=== PATIENT | female | born 1985 ===

== ENCOUNTER → 2016-09-01 | Outpatient (CLI) | payer OTHER | LOC: C.PAPS 17:17 | PROVIDERS: ATTEND Obstetrics & Gynecology | DX: Z12.4 Encounter for screening for malignant neoplasm of cervix (principal) ==

== ENCOUNTER 2021-06-18 00:45 | Inpatient (IN) ==
[2021-06-18] MEDS ORDERED: ACETAMINOPHEN 1,000 MG/100 ML VIAL IV PRN (02:40)
[2021-06-18] MEDS ORDERED: ONDANSETRON 4 MG OD TAB PO PRN (02:41)
[2021-06-18] MEDS ORDERED: LACTATED RINGER'S 1,000 ML IV ONE (02:43)
--- NOTE | 2021-06-18 03:03 | History & Physical Report ---
Date of Service June 18, 2021 Assessment & Plan (1) Labor, prolonged latent phase: Plan: 35-year-old G1, P0 at 39 weeks and 4 days of gestation presenting with irregular but painful contractions since June 16 evening. No cervical change since yesterday morning in the office. Patient is painful and desires pain medication. Vital signs stable afebrile, heart rate reassuring, GBS negative, Discussed options of IV hydration and pain management with IV Tylenol or narcotics and then reevaluate for cervical change. Discussed options of either going home if there is no change or augmentation with oxytocin. Patient agrees with IV hydration and pain management and then decide after for admission or going home. She has a Dula and has her she is consulting with her Dula. They live 10 minutes away from hospital. Patient is allergic to codeine which cause rash after taking liquid codeine for acute pain. I spoke with pharmacist and okay to give Stadol if needed. We will observe, monitor, pain management and reevaluate. All questions were answered. (2) Irregular uterine contractions: History of Present Illness Primary Care Provider: NO PCP Patient is a 35-year-old G1, P0 at 39 weeks and 4 days of gestation she has been having contractions since June 16 evening. They got more closer and regular after 5 AM yesterday morning. They were every 5 to 10 minutes apart and she went to office at 9 AM and her cervix was checked to be 1 cm dilated 80% effaced and -3 station. She was sent home and her contractions spaced out in the afternoon. After 8 PM last night contractions became more regular again every 5 minutes and getting more painful. Her pain level is 8 out of 10 and she desires pain medication. She denies leakage of fluid or vaginal bleeding. She reports good movements. Her has been uncomplicated except hypothyroidism she is on levothyroxine. GBS is negative. Allergies Allergy/AdvReac Type Severity Reaction Status Date / Time codeine Allergy Intermediate rash all Verified 06/18/21 02:45 over body Patient History Social History Smoking Status: Never smoker Second Hand Exposure: No; Do You Dip or Chew Tobacco: No; Hx Alcohol Use: No Hx Substance Use: No Preferred Language: Malawian Communication Ability: Effective Excellence Coach Required: No Beliefs That Will Affect Care: None marital status: Single Current Living Situation: Significant Other Feels Safe at Home: Yes Safety Concerns: Feels Safe At This Time Assistive Devices: None Review of Systems as per Subjective / HPI Physical Exam Constitutional: well developed, well nourished and + acute distress (With contractions only, comfortable in between) Genitourinary: normal external appearance OB Exam Abdomen: + vertex Manual OB Exam: + cervical dilation 1 cm (1-2), + cervical effacement 70% and + station -2 OB Exam Monitor Tracing: + external uterine monitor used and + category I White curdy discharge suggesting Casie patient is very tender to touch in the vagina Results & Data ([facility]) Vital Signs (Past 12 Hours) Vital Signs Temp Pulse Resp BP 06/18/21 01:04 84 132/80 06/18/21 00:58 37.2 C 16
[2021-06-18] MEDS ORDERED: BUTORPHANOL TARTRATE 1 MG/ML VIAL IV ONE (03:09)
[2021-06-18 03:18] LABS: Basophils # (auto) 0.02 K/uL (0-0.2); Basophils % (auto) 0.2 %; Eosinophils # (auto) 0.05 K/uL (0-0.5); Eosinophils % (auto) 0.6 %; Hematocrit (blood only) 36.5 % (37-47); Hemoglobin 12.6 g/dL (12.0-16.0); Immature Granulocytes # (auto) 0.02 K/uL (0.00-0.02); Immature Granulocytes % (auto) 0.2 %; Lymphocytes # (auto) 2.13 K/uL (1.2-3.4); Lymphocytes % (auto) 23.5 %; Mean Corpuscular Hemoglobin 29.9 pg (25-34); Mean Corpuscular Hgb Conc 34.5 g/dL (32-36); Mean Corpuscular Volume 86.5 fL (80-100); Mean Platelet Volume 9.8 fL (7.4-10.4); Monocytes # (auto) 0.54 K/uL (0.11-0.59); Monocytes % (auto) 5.9 %; Neutrophils # (auto) 6.32 K/uL (1.4-6.5); Neutrophils % (auto) 69.6 %; Platelet Count 187 K/uL (130-400); RDW Coefficient of Variation 13.4 % (11.5-14.5); Red Blood Count 4.22 M/uL (4.2-5.4); White Blood Count 9.08 K/uL (4.8-10.8)
[2021-06-18 03:33] LABS: Albumin Globulin Ratio 1.1 (0.9-2); Albumin Level 3.3 gm/dl (3.4-5.0); Bilirubin,Total 0.3 mg/dl (0.2-1.0); Calcium 8.6 mg/dl (8.5-10.1); Creatinine Clr Calc Pharmacy 154.2 ml/min; Est GFR (African American) 138.8 ml/min; Est GFR (Non-African American) 119.8 ml/min; Globulin 2.9 gm/dl (2.5-4.0); Potassium 3.7 mmol/L (3.5-5.1); Total Protein 6.2 gm/dl (6.0-8.3)
[2021-06-18] MEDS: LACTATED RINGER'S 1,000 ML IV PRN ×4 (04:14→17:59)
[2021-06-18] MEDS ORDERED: OXYTOCIN 30 UNITS/500 ML BAG IV PRN ×3 (10:44→13:00)
--- NOTE | 2021-06-18 10:48 | Obstetrical Progress Note ---
Date of Service June 18, 2021 Assessment & Plan (1) Labor, prolonged latent phase: Plan: Pt in latetnt phase of labor pain is severe ctx 1-3mins VE; ft/post Plan admit Results & Data ([facility]) Vital Signs (Past 12 Hours) Vital Signs Temp Pulse Resp BP 06/18/21 10:07 66 143/84 H 06/18/21 07:53 36.7 C 20 06/18/21 07:47 77 143/73 H 06/18/21 06:20 36.9 C 71 16 134/79 06/18/21 03:22 36.8 C 63 18 128/70 06/18/21 01:04 84 132/80 06/18/21 00:58 37.2 C 16
[2021-06-18] MEDS ORDERED: ePHEDrine sulfate 50 MG/ML AMP ONE (10:49)
[2021-06-18] MEDS ORDERED: SODIUM CHLORIDE 0.9% INJ 10 ML VIAL ONE (10:50)
[2021-06-18] MEDS ORDERED: BUPIVACAINE 0.25% 30 ML VIAL ONE (10:50)
[2021-06-18] MEDS ORDERED: fentaNYL citrate 100 MCG/2 ML VIAL ONE (10:50)
[2021-06-18] MEDS ORDERED: fentaNYL 2MCG/ML ROPIVACAINE 1.25MG/ML 100 ML BAG EPI ONE (10:50)
[2021-06-18] MEDS ORDERED: NALOXONE HCL 1 MG in SODIUM CHLORIDE 0.9% 1000ML 1,000 ML IV PRN ×2 (11:10→21:51)
[2021-06-18] MEDS ORDERED: NALBUPHINE HCL INJ 10 MG/ML AMP IV PRN (11:10)
[2021-06-18] MEDS ORDERED: NALOXONE HCL 0.4 MG/1 ML VIAL/CARP IV PRN ×2 (11:10→21:51)
[2021-06-18] MEDS ORDERED: fentaNYL 2MCG/ML ROPIVACAINE 1.25MG/ML 100 ML BAG EPI PRN (11:10)
[2021-06-18] MEDS ORDERED: diphenhydrAMINE 50 MG/ML VIAL IV PRN ×2 (11:10→21:51)
[2021-06-18] MEDS ORDERED: ONDANSETRON INJ 2 MG/ML 2 ML VIAL IV PRN ×2 (11:10→21:51)
[2021-06-18] MEDS ORDERED: ePHEDrine sulfate 50 MG/ML AMP IV PRN ×2 (11:10→21:51)
--- NOTE | 2021-06-18 11:16 | Anesthesiology Consultation ---
Date of Service June 18, 2021 Assessment & Plan Chart Review Chart Review: Patient NOT seen in Pre Admission Testing Consults Requested none ASA ASA2 Proposed Anesthesia Anesthesia Type: Labor Epidural and CSE Risk / Benefits Reviewed With: PT / POA / Parent / Guardian, Accepts Plan and Informed Consent Obtained History Height/Weight Height: 5 ft 7 in Weight: 90.718 kg Allergies Allergy/AdvReac Type Severity Reaction Status Date / Time codeine Allergy Intermediate rash all Verified 06/18/21 02:45 over body Medications Home Medications Medication Instructions Recorded Confirmed Last Taken levothyroxine 25 mcg tablet 25 mcg PO DAILY 06/18/21 06/18/21 06/17/21 06:00 prenat.vits,simon,[id number] 1 tab PO DAILY 06/18/21 06/18/21 06/17/21 07:00 Active Medications Generic Name Dose Route Start Last Admin Trade Name Freq PRN Reason Stop Dose Admin Acetaminophen 1,000 mg in 100 mls @ 400 mls/hr 06/18/21 02:40 06/18/21 03:20 Ofirmev IV 06/21/21 02:39 Infused Q8H PRN Infusion Pain Lactated Ringer's 1,000 mls @ 250 mls/hr 06/18/21 02:41 06/18/21 10:41 Lr IV 07/18/21 02:40 999 mls/hr .Q4H PRN Infusion L&D Protocol Protocol NPO Date Last Intake of Fluids: 06/18/21 Time Last Intake of Fluids: 11:00 Date Last Intake of Solids: 06/17/21 Time Last Intake of Solids: 22:00 Past Medical History Medical History Hypothyroid Exercise / Class Metabolic Activity II 4-5 Yardwork/Stairs/Walk up hill Past Anesthesia History No Hx of Anesthesia Complications and No Family Hx of Anesthesia Complications History of PONV No Hx of PONV and No Hx of Motion Sickness Social History Smoking Status: Never smoker Do You Dip or Chew Tobacco: No Hx Alcohol Use: No Hx Substance Use: No substance use type: does not use Review of Systems no chest pain or sob Physical Exam Vital Signs Last Vital Signs Temp 36.7 C 06/18/21 07:53 Pulse 66 06/18/21 11:14 Resp 20 06/18/21 07:53 BP 143/84 H 06/18/21 10:07 Pulse Ox 98 06/18/21 11:14 ENMT Mouth: no TMJ abnormality Thyromental Distance: > or= 3.5 Finger Breadths Mallampati Class: II Neck normal visual inspection Respiratory normal respiratory effort Auscultation: lungs clear to auscultation bilaterally Cardiovascular Rate/Rhythm: regular rate and regular rhythm Musculoskeletal Spine: normal cervical ROM Neurologic moves all extremities Psychiatric Orientation: alert and oriented x 3 Testing Laboratory Results 06/18/21 03:03 06/18/21 03:03
--- NOTE | 2021-06-18 12:07 | Obstetrical Progress Note ---
Date of Service June 18, 2021 Assessment & Plan (1) Labor, prolonged latent phase: Plan: Pt doing well FHR; CAT1 Epidural analgesia placed Ctx; mild and irregular VE; 3/50/-3 Admission and Anticipated Discharge Date Admission Date: June 18, 2021 Results & Data ([facility]) Vital Signs (Past 12 Hours) Vital Signs Temp Pulse Resp BP Pulse Ox 06/18/21 12:02 86 93 06/18/21 11:59 75 98 06/18/21 11:54 68 97 06/18/21 11:49 71 98 06/18/21 11:45 85 128/81 06/18/21 11:44 87 99 06/18/21 11:41 77 116/77 06/18/21 11:39 80 98 06/18/21 11:34 75 125/73 98 06/18/21 11:32 73 131/76 06/18/21 11:30 80 132/73 06/18/21 11:29 79 98 06/18/21 11:28 68 134/83 06/18/21 11:26 130/85 06/18/21 11:24 69 98 06/18/21 11:19 75 99 06/18/21 11:17 81 134/81 06/18/21 11:14 66 98 06/18/21 10:07 66 143/84 H 06/18/21 07:53 36.7 C 20 06/18/21 07:47 77 143/73 H 06/18/21 06:20 36.9 C 71 16 134/79 06/18/21 03:22 36.8 C 63 18 128/70 06/18/21 01:04 84 132/80 06/18/21 00:58 37.2 C 16
[2021-06-18] MEDS ORDERED: NURSING L&D Epidural Breakthrough Pain Update ONE (16:12)
--- NOTE | 2021-06-18 20:09 | Obstetrical Progress Note ---
Date of Service June 18, 2021 Assessment & Plan (1) Labor, prolonged latent phase: Plan: Pt fully dilated and pushing Late decels and meconium with pushing Pushing is stopped. IVF and oxygen is given to resuscitate baby Late decels resolved after pushing is stopped Plan will stop pushing for now Admission and Anticipated Discharge Date Admission Date: June 18, 2021 Results & Data ([facility]) Vital Signs (Past 12 Hours) Vital Signs Temp Pulse Resp BP Pulse Ox 06/18/21 19:59 72 100 06/18/21 19:54 67 100 06/18/21 19:51 92 H 93 06/18/21 19:49 95 H 100 06/18/21 19:45 84 90 06/18/21 19:44 104 H 98 06/18/21 19:39 87 99 06/18/21 19:34 89 98 06/18/21 19:30 18 06/18/21 19:29 93 H 99 06/18/21 19:28 80 94 06/18/21 19:24 78 100 06/18/21 19:20 72 142/84 H 06/18/21 19:19 68 100 06/18/21 19:14 85 94 06/18/21 19:11 37.4 C 74 18 94 06/18/21 19:09 92 H 100 06/18/21 19:07 37.4 C 18 06/18/21 19:06 87 139/91 06/18/21 19:04 71 97 06/18/21 18:59 68 100 06/18/21 18:54 73 99 06/18/21 18:52 80 139/70 06/18/21 18:49 82 98 06/18/21 18:44 68 100 06/18/21 18:40 70 132/61 06/18/21 18:39 67 99 06/18/21 18:34 93 H 94 06/18/21 18:29 66 100 06/18/21 18:24 69 100 06/18/21 18:20 71 152/102 H 06/18/21 18:19 79 100 06/18/21 18:14 74 100 06/18/21 18:09 67 100 06/18/21 18:04 63 100 06/18/21 17:59 63 100 06/18/21 17:54 67 99 06/18/21 17:50 73 127/59 L 06/18/21 17:49 76 94 06/18/21 17:47 85 93 06/18/21 17:44 93 H 98 06/18/21 17:42 87 91 06/18/21 17:39 69 99 06/18/21 17:36 69 158/79 H 06/18/21 17:34 69 98 06/18/21 17:29 71 98 06/18/21 17:24 65 95 06/18/21 17:20 66 165/78 H 06/18/21 17:19 68 98 06/18/21 17:14 66 99 06/18/21 17:09 64 97 06/18/21 17:08 70 94 06/18/21 17:05 67 170/78 H 06/18/21 17:04 67 98 06/18/21 17:00 37.1 C 20 06/18/21 16:59 65 96 06/18/21 16:54 73 99 06/18/21 16:53 72 92 06/18/21 16:50 67 160/82 H 06/18/21 16:49 69 97 06/18/21 16:44 66 100 06/18/21 16:39 73 99 06/18/21 16:34 83 89 L 06/18/21 16:32 69 92 06/18/21 16:29 66 97 06/18/21 16:25 69 94 06/18/21 16:24 69 100 06/18/21 16:21 62 140/65 06/18/21 16:19 67 94 06/18/21 16:15 67 94 06/18/21 16:14 68 99 06/18/21 16:09 73 91 06/18/21 16:05 75 138/75 06/18/21 16:04 80 96 06/18/21 16:03 70 90 06/18/21 15:59 69 100 06/18/21 15:54 65 98 06/18/21 15:51 74 93 06/18/21 15:49 67 97 06/18/21 15:44 73 95 06/18/21 15:40 68 94 06/18/21 15:39 68 94 06/18/21 15:35 71 140/83 06/18/21 15:34 68 98 06/18/21 15:30 37.2 C 20 06/18/21 15:29 83 97 06/18/21 15:25 72 90 06/18/21 15:24 72 94 06/18/21 15:22 59 L 139/80 06/18/21 15:19 64 98 06/18/21 15:14 64 96 06/18/21 15:09 69 90 06/18/21 15:08 66 94 06/18/21 15:06 68 163/75 H 06/18/21 15:04 75 97 06/18/21 15:02 74 92 06/18/21 14:59 76 99 06/18/21 14:56 71 93 06/18/21 14:54 61 97 06/18/21 14:50 62 142/72 H 06/18/21 14:49 63 98 06/18/21 14:48 61 94 06/18/21 14:44 68 98 06/18/21 14:39 59 L 97 06/18/21 14:36 60 92 06/18/21 14:35 62 147/75 H 06/18/21 14:34 60 97 06/18/21 14:31 91 H 91 06/18/21 14:29 66 97 06/18/21 14:24 89 89 L 06/18/21 14:21 76 183/79 H 06/18/21 14:19 72 99 06/18/21 14:18 77 92 06/18/21 14:14 76 98 06/18/21 14:11 81 92 06/18/21 14:09 75 98 06/18/21 14:06 85 93 06/18/21 14:04 77 96 06/18/21 13:59 82 93 06/18/21 13:57 79 94 06/18/21 13:54 72 96 06/18/21 13:50 64 131/64 06/18/21 13:49 70 97 06/18/21 13:44 68 96 06/18/21 13:42 68 94 06/18/21 13:39 72 96 06/18/21 13:35 71 131/59 L 06/18/21 13:34 74 97 06/18/21 13:29 78 97 06/18/21 13:24 87 95 06/18/21 13:20 94 H 151/64 H 06/18/21 13:19 76 96 06/18/21 13:14 75 96 06/18/21 13:09 74 96 06/18/21 13:05 76 135/64 06/18/21 13:04 69 97 06/18/21 12:59 72 97 06/18/21 12:54 78 97 06/18/21 12:50 67 147/70 H 06/18/21 12:49 69 97 06/18/21 12:44 73 98 06/18/21 12:39 83 96 06/18/21 12:37 83 91 06/18/21 12:35 78 145/73 H 06/18/21 12:34 88 97 06/18/21 12:29 82 96 06/18/21 12:24 76 98 06/18/21 12:22 86 93 06/18/21 12:20 93 H 130/53 L 06/18/21 12:19 76 100 06/18/21 12:14 89 98 06/18/21 12:13 88 92 06/18/21 12:09 82 97 06/18/21 12:07 98 H 91 06/18/21 12:04 70 98 06/18/21 12:02 86 93 06/18/21 11:59 75 98 06/18/21 11:54 68 97 06/18/21 11:49 71 98 06/18/21 11:45 85 128/81 06/18/21 11:44 87 99 06/18/21 11:41 77 116/77 06/18/21 11:39 80 98 06/18/21 11:34 75 125/73 98 06/18/21 11:32 73 131/76 06/18/21 11:30 80 132/73 06/18/21 11:29 79 98 06/18/21 11:28 68 134/83 06/18/21 11:26 130/85 06/18/21 11:24 69 98 06/18/21 11:19 75 99 06/18/21 11:17 81 134/81 06/18/21 11:14 66 98 06/18/21 10:07 66 143/84 H
--- NOTE | 2021-06-18 20:45 | Obstetrical Progress Note ---
Date of Service June 18, 2021 Assessment & Plan (1) Labor, prolonged latent phase: Plan: Reviewed FHR strip with pt and spouse VE; 10/100/+1 - Uncahnged thick meconium Pitocin is off deep variables and occasional decels are present Recommend c/sec to pt and spouse Pt and spouse wish to be excised so they can discuss recommendation with Director Targeted Marketing Admission and Anticipated Discharge Date Admission Date: June 18, 2021 Results & Data ([facility]) Vital Signs (Past 12 Hours) Vital Signs Temp Pulse Resp BP Pulse Ox 06/18/21 20:39 74 98 06/18/21 20:37 81 91 06/18/21 20:35 75 124/71 06/18/21 20:34 77 100 06/18/21 20:30 83 91 06/18/21 20:29 77 100 06/18/21 20:24 70 100 06/18/21 20:21 75 152/78 H 06/18/21 20:20 79 92 06/18/21 20:19 77 100 06/18/21 20:14 73 98 06/18/21 20:09 72 100 06/18/21 20:06 75 137/73 06/18/21 20:05 18 06/18/21 20:04 70 100 06/18/21 19:59 72 100 06/18/21 19:54 67 100 06/18/21 19:51 92 H 93 06/18/21 19:49 95 H 100 06/18/21 19:45 84 18 90 06/18/21 19:44 104 H 98 06/18/21 19:39 87 99 06/18/21 19:34 89 98 06/18/21 19:30 18 06/18/21 19:29 93 H 99 06/18/21 19:28 80 94 06/18/21 19:24 78 100 06/18/21 19:20 72 142/84 H 06/18/21 19:19 68 100 06/18/21 19:14 85 94 06/18/21 19:11 37.4 C 74 18 94 06/18/21 19:09 92 H 100 06/18/21 19:07 37.4 C 18 06/18/21 19:06 87 139/91 06/18/21 19:04 71 97 06/18/21 18:59 68 100 06/18/21 18:54 73 99 06/18/21 18:52 80 139/70 06/18/21 18:49 82 98 06/18/21 18:44 68 100 06/18/21 18:40 70 132/61 06/18/21 18:39 67 99 06/18/21 18:34 93 H 94 06/18/21 18:29 66 100 06/18/21 18:24 69 100 06/18/21 18:20 71 152/102 H 06/18/21 18:19 79 100 06/18/21 18:14 74 100 06/18/21 18:09 67 100 06/18/21 18:04 63 100 06/18/21 17:59 63 100 06/18/21 17:54 67 99 06/18/21 17:50 73 127/59 L 06/18/21 17:49 76 94 06/18/21 17:47 85 93 06/18/21 17:44 93 H 98 06/18/21 17:42 87 91 06/18/21 17:39 69 99 06/18/21 17:36 69 158/79 H 06/18/21 17:34 69 98 06/18/21 17:29 71 98 06/18/21 17:24 65 95 06/18/21 17:20 66 165/78 H 06/18/21 17:19 68 98 06/18/21 17:14 66 99 06/18/21 17:09 64 97 06/18/21 17:08 70 94 06/18/21 17:05 67 170/78 H 06/18/21 17:04 67 98 06/18/21 17:00 37.1 C 20 06/18/21 16:59 65 96 06/18/21 16:54 73 99 06/18/21 16:53 72 92 06/18/21 16:50 67 160/82 H 06/18/21 16:49 69 97 06/18/21 16:44 66 100 06/18/21 16:39 73 99 06/18/21 16:34 83 89 L 06/18/21 16:32 69 92 06/18/21 16:29 66 97 06/18/21 16:25 69 94 06/18/21 16:24 69 100 06/18/21 16:21 62 140/65 06/18/21 16:19 67 94 06/18/21 16:15 67 94 06/18/21 16:14 68 99 06/18/21 16:09 73 91 06/18/21 16:05 75 138/75 06/18/21 16:04 80 96 06/18/21 16:03 70 90 06/18/21 15:59 69 100 06/18/21 15:54 65 98 06/18/21 15:51 74 93 06/18/21 15:49 67 97 06/18/21 15:44 73 95 06/18/21 15:40 68 94 06/18/21 15:39 68 94 06/18/21 15:35 71 140/83 06/18/21 15:34 68 98 06/18/21 15:30 37.2 C 20 06/18/21 15:29 83 97 06/18/21 15:25 72 90 06/18/21 15:24 72 94 06/18/21 15:22 59 L 139/80 06/18/21 15:19 64 98 06/18/21 15:14 64 96 06/18/21 15:09 69 90 06/18/21 15:08 66 94 06/18/21 15:06 68 163/75 H 06/18/21 15:04 75 97 06/18/21 15:02 74 92 06/18/21 14:59 76 99 06/18/21 14:56 71 93 06/18/21 14:54 61 97 06/18/21 14:50 62 142/72 H 06/18/21 14:49 63 98 06/18/21 14:48 61 94 06/18/21 14:44 68 98 06/18/21 14:39 59 L 97 06/18/21 14:36 60 92 06/18/21 14:35 62 147/75 H 06/18/21 14:34 60 97 06/18/21 14:31 91 H 91 06/18/21 14:29 66 97 06/18/21 14:24 89 89 L 06/18/21 14:21 76 183/79 H 06/18/21 14:19 72 99 06/18/21 14:18 77 92 06/18/21 14:14 76 98 06/18/21 14:11 81 92 06/18/21 14:09 75 98 06/18/21 14:06 85 93 06/18/21 14:04 77 96 06/18/21 13:59 82 93 06/18/21 13:57 79 94 06/18/21 13:54 72 96 06/18/21 13:50 64 131/64 06/18/21 13:49 70 97 06/18/21 13:44 68 96 06/18/21 13:42 68 94 06/18/21 13:39 72 96 06/18/21 13:35 71 131/59 L 06/18/21 13:34 74 97 06/18/21 13:29 78 97 06/18/21 13:24 87 95 06/18/21 13:20 94 H 151/64 H 06/18/21 13:19 76 96 06/18/21 13:14 75 96 06/18/21 13:09 74 96 06/18/21 13:05 76 135/64 06/18/21 13:04 69 97 06/18/21 12:59 72 97 06/18/21 12:54 78 97 06/18/21 12:50 67 147/70 H 06/18/21 12:49 69 97 06/18/21 12:44 73 98 06/18/21 12:39 83 96 06/18/21 12:37 83 91 06/18/21 12:35 78 145/73 H 06/18/21 12:34 88 97 06/18/21 12:29 82 96 06/18/21 12:24 76 98 06/18/21 12:22 86 93 06/18/21 12:20 93 H 130/53 L 06/18/21 12:19 76 100 06/18/21 12:14 89 98 06/18/21 12:13 88 92 06/18/21 12:09 82 97 06/18/21 12:07 98 H 91 06/18/21 12:04 70 98 06/18/21 12:02 86 93 06/18/21 11:59 75 98 06/18/21 11:54 68 97 06/18/21 11:49 71 98 06/18/21 11:45 85 128/81 06/18/21 11:44 87 99 06/18/21 11:41 77 116/77 06/18/21 11:39 80 98 06/18/21 11:34 75 125/73 98 06/18/21 11:32 73 131/76 06/18/21 11:30 80 132/73 06/18/21 11:29 79 98 06/18/21 11:28 68 134/83 06/18/21 11:26 130/85 06/18/21 11:24 69 98 06/18/21 11:19 75 99 06/18/21 11:17 81 134/81 06/18/21 11:14 66 98 06/18/21 10:07 66 143/84 H
[2021-06-18] MEDS ORDERED: ceFAZolin 2000MG 2,000 MG/15 ML SYR IV ONE (21:11)
[2021-06-18] MEDS ORDERED: CITRIC ACID/SODIUM CITRATE 15 ML UDC ONE (21:15)
--- NOTE | 2021-06-18 21:24 | History & Physical Bridge Note ---
Date of Service June 18, 2021 History & Physical Bridge Note I have examined the patient, reviewed the History & Physical and in the interval since the performance of the History & Physical I have noted the following changes of clinical significance: no changes noted
[2021-06-18] MEDS ORDERED: NALOXONE HCL 0.08 MG in SYRINGE 1.8 ML IV PRN (21:51)
[2021-06-18] MEDS ORDERED: MEPERIDINE HCL 25 MG/ML CARP/VIAL IV PRN (21:51)
[2021-06-18] MEDS ORDERED: MoRPHine SULFATE PF 1 MG/ML 10 ML AMP/VIAL EPI ONE (21:51)
[2021-06-18] MEDS ORDERED: LACTATED RINGER'S 500 ML IV PRN (21:51)
[2021-06-18] MEDS ORDERED: MoRPHine SULFATE PF 1 MG/ML 10 ML AMP/VIAL ONE (21:56)
[2021-06-18] MEDS ORDERED: SODIUM CHLORIDE 0.9% 1000ML 1,000 ML IV SCH (22:00)
[2021-06-18] MEDS ORDERED: DC INTRASPINAL MORPHINE SCH (22:00)
[2021-06-18] MEDS ORDERED: LIDOCAINE 2%/EPINEPHRINE 1:200,000 20 ML SDV ONE (22:22)
[2021-06-18] MEDS ORDERED: ONDANSETRON INJ 2 MG/ML 2 ML VIAL ONE (22:22)
[2021-06-18] MEDS ORDERED: METHYLERGONOVINE MALEATE 0.2 MG/ML AMP ONE (22:22)
[2021-06-18] MEDS ORDERED: PHENYLEPHRINE 100MCG/ML 5ML SYR ONE (22:22)
[2021-06-18] MEDS ORDERED: HYDROCORTISONE ACETATE 25 MG SUPP PR PRN (22:58)
[2021-06-18] MEDS ORDERED: MAGNESIUM HYDROXIDE SUSP 30 ML UDC PO PRN (22:58)
[2021-06-18] MEDS ORDERED: BENZOCAINE 20% AER SPR 82.5 GM CAN EXT PRN (22:58)
[2021-06-18] MEDS ORDERED: DIPHTHERIA/TETANUS/PERTUSSIS 0.5 ML SYR/VIAL IM ONE (22:58)
[2021-06-18] MEDS ORDERED: miSOPROStoL 200 MCG TAB PR ONE (22:58)
[2021-06-18] MEDS ORDERED: SENNA 8.6 MG TAB PO PRN (22:58)
[2021-06-18] MEDS ORDERED: METHYLERGONOVINE MALEATE 0.2 MG/ML AMP IM STA (22:58)
[2021-06-18] MEDS ORDERED: LACTATED RINGER'S 1,000 ML IV SCH (23:00)
[2021-06-18 23:44] LABS: Base Excess Cord Arterial Bld -5.3 mEq/L (-9-1.8); CO2 Cord Arterial Blood 45 mmHg (39.1-73.5); HCO3 Cord Arterial Blood 21 mmol/L (19.7-28.5); Oxygen Sat Cord Arterial Blood < 60.0 % (<60); PO2 Cord Arterial Blood 26 mmHg (4.1-31.7); pH Cord Arterial Blood 7.29 (7.1-7.38)
[2021-06-18] MEDS: KETOROLAC 30 MG/ML VIAL IV PRN (23:59)
--- NOTE | 2021-06-19 00:29 | Anesthesia Procedure Note ---
Date of Service June 19, 2021 Anesthesia Post Epidural Note Vital Signs Vital Signs: Temp Pulse Resp BP Pulse Ox 37.4 C 108 H 18 126/54 L 93 06/18/21 23:00 06/19/21 00:26 06/19/21 00:00 06/19/21 00:25 06/19/21 00:26 Pain Intensity Back: Pain Intensity: 6 Notes Mental Status: alert / awake / arousable and participated in evaluation Patient Amnestic to Procedure: No Nausea / Vomiting: adequately controlled Pain: adequately controlled Airway Patency, RR, SpO2: stable & adequate BP & HR: stable & adequate Hydration State: stable & adequate Neuraxial Anesthesia: was administered and sensory block is resolving Anesthetic Complications: no major complications apparent and Pt Satisfied with anesthetic care Epidural: Removed without complications and With tip intact
[2021-06-19] MEDS ORDERED: TERBUTALINE SULFATE 1 MG/ML VIAL SQ ONE (00:46)
[2021-06-19] MEDS ORDERED: OXYTOCIN 20 UNITS in LACTATED RINGER'S 1,000 ML IV SCH (01:00)
[2021-06-19] MEDS: KETOROLAC 30 MG/ML VIAL IV PRN ×2 (06:15→13:15)
[2021-06-19] MEDS: LEVOTHYROXINE SODIUM 25 MCG TABLET PO SCH (06:15)
[2021-06-19 07:05] LABS: Basophils # (auto) 0.01 K/uL (0-0.2); Basophils % (auto) 0.1 %; Eosinophils # (auto) 0.03 K/uL (0-0.5); Eosinophils % (auto) 0.2 %; Hematocrit (blood only) 31.6 % (37-47); Hemoglobin 10.8 g/dL (12.0-16.0); Immature Granulocytes # (auto) 0.03 K/uL (0.00-0.02); Immature Granulocytes % (auto) 0.2 %; Lymphocytes # (auto) 2.09 K/uL (1.2-3.4); Lymphocytes % (auto) 13.4 %; Mean Corpuscular Hemoglobin 29.7 pg (25-34); Mean Corpuscular Hgb Conc 34.2 g/dL (32-36); Mean Corpuscular Volume 86.8 fL (80-100); Mean Platelet Volume 9.8 fL (7.4-10.4); Monocytes % (auto) 4.5 %; Neutrophils % (auto) 81.6 %; Platelet Count 185 K/uL (130-400); RDW Coefficient of Variation 13.7 % (11.5-14.5); RDW Standard Deviation 43.1 fL (36.4-46.3); Red Blood Count 3.64 M/uL (4.2-5.4); White Blood Count 15.56 K/uL (4.8-10.8)
--- NOTE | 2021-06-19 08:26 | Obstetrical Progress Note ---
Date of Service June 19, 2021 Assessment & Plan (1) delivery delivered: POD #1 pt doing well no complaints continue day #1 care Subjective Ambulation: ambulating normally Voiding: no voiding problems Passing Gas:: Yes Diet Tolerance:: clear liquids Lochia:: Small Feeding Type:: breast feeding Review of Systems All systems reviewed & are unremarkable except as noted in HPI & below Physical Exam Constitutional WD/WN, vitals as above well developed and well nourished Eyes PERRL, conjunctivae normal, anicteric sclerae ENMT external ear and nose normal, oropharynx normal Neck trachea midline, no thyromegaly Respiratory normal respiratory effort, lungs clear to auscultation Cardiovascular RRR, no murmur, no edema Chest (Breasts) normal inspection/palpation of breasts Gastrointestinal (Abdomen) normal bowel sounds, soft, nontender, no hepatosplenomegaly Musculoskeletal no cyanosis or clubbing, extremities motor strength 5/5 Skin no rashes, warm and dry + incision (Clean,dry and intact) Neurologic patellar DTR's 2+ bilat, sensation intact Psychiatric A+Ox3, euthymic affect Genitourinary normal external appearance Lymphatic no cervical or axillary lymphadenopathy Results & Data ([facility]) Vital Signs (Past 12 Hours) Vital Signs Temp Pulse Pulse Resp BP BP Pulse Ox 06/19/21 08:02 36.7 C 76 19 116/74 95 06/19/21 06:21 81 98 06/19/21 06:20 19 98 06/19/21 06:16 77 97 06/19/21 06:11 79 99 06/19/21 06:06 74 94 06/19/21 06:01 75 94 06/19/21 05:56 77 95 06/19/21 05:51 76 95 06/19/21 05:46 76 94 06/19/21 05:41 78 94 06/19/21 05:36 75 94 06/19/21 05:31 76 94 06/19/21 05:26 77 94 06/19/21 05:21 76 94 06/19/21 05:20 18 94 06/19/21 05:16 77 94 06/19/21 05:11 76 94 06/19/21 05:06 77 94 06/19/21 05:01 77 95 06/19/21 04:56 74 94 06/19/21 04:51 76 95 06/19/21 04:46 76 94 06/19/21 04:41 76 95 06/19/21 04:36 76 94 06/19/21 04:31 74 95 06/19/21 04:26 76 95 06/19/21 04:21 72 94 06/19/21 04:16 84 98 06/19/21 04:11 75 97 06/19/21 04:06 81 96 06/19/21 04:05 36.9 C 18 97 06/19/21 04:03 78 120/59 L 06/19/21 04:01 97 H 97 06/19/21 03:56 91 H 95 06/19/21 03:51 97 H 95 06/19/21 03:46 109 H 96 06/19/21 03:41 83 94 06/19/21 03:36 83 94 06/19/21 03:31 82 94 06/19/21 03:26 83 94 06/19/21 03:21 79 95 06/19/21 03:16 83 94 06/19/21 03:11 81 93 06/19/21 03:06 89 96 06/19/21 03:05 18 98 06/19/21 03:01 93 H 96 06/19/21 02:56 96 H 95 06/19/21 02:51 97 H 96 06/19/21 02:46 97 H 94 06/19/21 02:41 84 94 06/19/21 02:36 78 94 06/19/21 02:31 80 94 06/19/21 02:26 101 H 94 06/19/21 02:21 100 H 97 06/19/21 02:16 86 95 06/19/21 02:11 86 93 06/19/21 02:06 93 H 95 06/19/21 02:05 18 93 06/19/21 02:01 91 H 93 06/19/21 01:56 100 H 95 06/19/21 01:51 94 H 96 06/19/21 01:46 94 H 96 06/19/21 01:41 95 H 95 06/19/21 01:36 90 95 06/19/21 01:31 93 H 95 06/19/21 01:26 97 H 96 06/19/21 01:21 94 H 95 06/19/21 01:16 91 H 95 06/19/21 01:11 104 H 96 06/19/21 01:06 100 H 94 06/19/21 01:02 100 H 128/59 L 06/19/21 01:01 98 H 95 06/19/21 01:00 37.0 C 18 06/19/21 00:56 96 H 92 06/19/21 00:55 94 H 126/61 06/19/21 00:51 98 H 95 06/19/21 00:46 98 H 95 06/19/21 00:45 96 H 123/63 06/19/21 00:41 97 H 95 06/19/21 00:36 97 H 95 06/19/21 00:35 99 H 115/58 L 06/19/21 00:31 101 H 95 06/19/21 00:30 18 06/19/21 00:26 108 H 93 06/19/21 00:25 107 H 126/54 L 06/19/21 00:21 98 H 96 06/19/21 00:16 105 H 95 06/19/21 00:15 108 H 115/58 L 06/19/21 00:11 106 H 95 06/19/21 00:06 107 H 94 06/19/21 00:05 101 H 130/61 06/19/21 00:01 99 H 98 06/19/21 00:00 18 06/18/21 23:56 106 H 95 06/18/21 23:55 105 H 124/56 L 06/18/21 23:51 100 H 97 06/18/21 23:50 18 06/18/21 23:46 104 H 155/65 H 96 06/18/21 23:41 101 H 97 06/18/21 23:40 18 06/18/21 23:36 105 H 98 06/18/21 23:35 101 H 130/74 06/18/21 23:31 100 H 95 06/18/21 23:30 18 06/18/21 23:27 102 H 126/70 06/18/21 23:26 101 H 96 06/18/21 23:21 104 H 95 06/18/21 23:20 18 06/18/21 23:19 108 H 94 06/18/21 23:16 104 H 96 06/18/21 23:11 108 H 96 06/18/21 23:10 18 06/18/21 23:02 101 H 108/59 L 88 L 06/18/21 23:00 37.4 C 18 06/18/21 22:57 102 H 97 06/18/21 21:22 20 06/18/21 21:20 37.3 C 114 H 20 91 06/18/21 21:19 123 H 99 06/18/21 21:14 112 H 100 06/18/21 21:09 109 H 99 06/18/21 21:05 95 H 131/63 06/18/21 21:04 95 H 100 06/18/21 20:59 70 95 06/18/21 20:54 69 96 06/18/21 20:51 68 128/76 06/18/21 20:49 70 97 06/18/21 20:47 76 93 06/18/21 20:44 75 97 06/18/21 20:42 79 93 06/18/21 20:39 74 98 06/18/21 20:37 81 91 06/18/21 20:35 75 124/71 06/18/21 20:34 77 100 06/18/21 20:30 83 20 91 06/18/21 20:29 77 100
[2021-06-19] MEDS: IBUPROFEN 600 MG TAB PO PRN ×3 (08:36→23:20)
[2021-06-19] MEDS: SIMETHICONE 80 MG CHEW PO SCH ×3 (08:37→20:44)
--- NOTE | 2021-06-19 09:12 | Operative Report (OR) ---
DATE OF PROCEDURE: 06/18/2021 INDICATION FOR SURGERY: This is a 35-year-old G1, P0 at term, who presented in labor. The patient w as admitted and dilated to 10 cm. Fetus became intolerant to labor during pushing. Decision was the refore made to perform section. PREOPERATIVE DIAGNOSES: 1. at term. 2. intolerance to labor. POSTOPERATIVE DIAGNOSES: 1. at term. 2. intolerance to labor. SURGEON: Ruben Mathews MD. MEDIA PROMOTER: Mila Craig RN ESTIMATED BLOOD LOSS: 900 mL URINE OUTPUT: 300 mL of clear urine at the end of the procedure. INTRAVENOUS FLUIDS: 1500 mL. FINDINGS: Live in cephalic presentation with nuchal cord. There was also thick meconium. Ut erus, adnexa and abdomen otherwise appeared grossly normal. COMPLICATIONS: None. DRAINS: Duran catheter. ANESTHESIA: Epidural. ATTENDING FOR ANESTHESIA: Dr. Dan. DISPOSITION: Stable to recovery room. PATHOLOGY: Cord blood, cord gas and placenta. DESCRIPTION OF PROCEDURE: The patient was taken to the operating room where she was prepped and drap ed in normal sterile fashion in dorsal lithotomy position. Timeout was called. Pfannenstiel incisio n was made with a scalpel and carried down to the fascia. Fascia was incised in the midline and exte nded laterally on both sides. Fascia was sharply dissected off the rectus abdominis muscle superiorl y and inferiorly. Peritoneum was entered sharply. Once inside the abdomen, the findings were as dic tated above. An Joe retractor was placed in the abdomen. Vesicouterine peritoneum was sharply di ssected off the lower segment of the uterus. Low transverse incision was made on the uterus and exte nded laterally on both sides. Infant's head was delivered, mouth was suctioned, cord was clamped and cut. was handed over to the waiting pediatric team. Details of the infant's weight and Apga rs are in the pediatric record. Cord blood and cord gases were obtained. Placenta was manually removed. Uterus was exteriorized and cleared of all clots and debris. Uterus was closed in 2 layers using Vicryl. There was good hemost asis post-repair. Bladder flap was reapproximated with plain suture. Copious amount of irrigation w as used to irrigate the abdomen. There was good hemostasis. Joe retractor was removed. Peritone um closed with plain suture. The rectus abdominis muscle was reapproximated loosely with a loose fig [id number] suture. Fascia was closed in a running fashion with Vicryl stitch. Subcutaneous space was reapproximated with plain suture. Skin was closed with clare. All instruments were removed from the abdomen and accounted for x2 including sponges, needles, and re tractors. The patient is sent to recovery in stable condition. Job ID: [id number]
[2021-06-19] MEDS: PRENATAL VITAMIN 1 TAB PO SCH (12:40)
[2021-06-19] MEDS: DOCUSATE SODIUM 100 MG CAP PO SCH ×2 (12:40→20:44)
[2021-06-19] MEDS: FERROUS SULFATE 325 MG TAB PO SCH (12:40)
[2021-06-19] MEDS ORDERED: PROMETHAZINE HCL 25 MG in SODIUM CHLORIDE 0.9% 50 ML IV PRN (15:51)
[2021-06-19] MEDS ORDERED: diphenhydrAMINE 50 MG/ML VIAL IV PRN (15:51)
[2021-06-19] MEDS ORDERED: ONDANSETRON INJ 2 MG/ML 2 ML VIAL IV PRN (15:51)
[2021-06-19] MEDS ORDERED: diphenhydrAMINE Capsule 25 MG CAP PO PRN (15:51)
[2021-06-19] MEDS ORDERED: GENTAMICIN CONSULT ACTIVE PRN (17:04)
--- NOTE | 2021-06-19 17:10 | Progress Note ---
Date of Service June 19, 2021 Assessment & Plan (1) delivery delivered: Plan: Pt with c/o chills. no nausea or vomiting Tolerating PO food and meds POD #1 Ht. S1S2 R/r/r Lung CTA Bilt Incision ; dressing intact Duran removed Plan labs ordered start IV antibx and blood culx Admission and Anticipated Discharge Date Admission Date: June 18, 2021 Results & Data ([facility]) Vital Signs (Past 12 Hours) Vital Signs Temp Pulse Pulse Resp BP Pulse Ox 06/19/21 16:51 38.3 C H 06/19/21 16:40 37.6 C H 06/19/21 15:39 37 C 88 20 120/75 06/19/21 12:54 36.5 C 06/19/21 11:50 36.8 C 74 18 113/71 97 06/19/21 08:02 36.7 C 76 19 116/74 95 06/19/21 06:21 81 98 06/19/21 06:20 19 98 06/19/21 06:16 77 97 06/19/21 06:11 79 99 06/19/21 06:06 74 94 06/19/21 06:01 75 94 06/19/21 05:56 77 95 06/19/21 05:51 76 95 06/19/21 05:46 76 94 06/19/21 05:41 78 94 06/19/21 05:36 75 94 06/19/21 05:31 76 94 06/19/21 05:26 77 94 06/19/21 05:21 76 94 06/19/21 05:20 18 94 06/19/21 05:16 77 94 06/19/21 05:11 76 94
[2021-06-19 17:31] LABS: Hematocrit (blood only) 30.9 % (37-47); Hemoglobin 10.7 g/dL (12.0-16.0); Mean Corpuscular Hemoglobin 30.1 pg (25-34); Mean Corpuscular Hgb Conc 34.6 g/dL (32-36); Mean Corpuscular Volume 86.8 fL (80-100); Mean Platelet Volume 9.1 fL (7.4-10.4); Platelet Count 176 K/uL (130-400); RDW Coefficient of Variation 13.8 % (11.5-14.5); RDW Standard Deviation 43.8 fL (36.4-46.3); Red Blood Count 3.56 M/uL (4.2-5.4); White Blood Count 12.87 K/uL (4.8-10.8)
[2021-06-19 17:52] LABS: Albumin Globulin Ratio 1.1 (0.9-2); Albumin Level 2.8 gm/dl (3.4-5.0); BUN Creatinine Ratio 11.4 (10-20); Bilirubin,Total 0.4 mg/dl (0.2-1.0); Creatinine Clr Calc Pharmacy 132.2 ml/min; Est GFR (African American) 131.9 ml/min; Est GFR (Non-African American) 113.8 ml/min; Globulin 2.6 gm/dl (2.5-4.0); Potassium 3.6 mmol/L (3.5-5.1); Total Protein 5.4 gm/dl (6.0-8.3)
[2021-06-19 18:00] LABS: Basophils # (auto) 0.02 K/uL (0-0.2); Basophils % (auto) 0.2 %; Eosinophils # (auto) 0.05 K/uL (0-0.5); Eosinophils % (auto) 0.4 %; Immature Granulocytes # (auto) 0.02 K/uL (0.00-0.02); Immature Granulocytes % (auto) 0.2 %; Lymphocytes # (auto) 1.11 K/uL (1.2-3.4); Lymphocytes % (auto) 8.6 %; Monocytes # (auto) 0.62 K/uL (0.11-0.59); Monocytes % (auto) 4.8 %; Neutrophils # (auto) 11.05 K/uL (1.4-6.5); Neutrophils % (auto) 85.8 %
--- NOTE | 2021-06-19 18:24 | Pharmacy Report ---
Pharmacy Abx Dose Short Note - Date of Service June 19, 2021 - Assessment & Plan Assessment 35 year old F s/p delivery on 06/18/21 found to have chills, fever, and leukocytosis. Started on empiric gentamicin and ampicillin. Plan Gentamicin * 450 mg (5 mg/kg actual body weight) IV every 24h * Level monitoring not necessary for short course therapy (72 hours or less). * Will obtain trough level if continued beyond 72 hours * Target tough level < 1 mcg/mL Ampicillin * 2000 mg IV every 6h Pharmacy will continue to follow and will adjust dose/frequency as necessary. Thank you.
--- NOTE | 2021-06-19 19:11 | XRay Report ---
TWO VIEW CHEST CLINICAL HISTORY: Fever. Recent surgery. FINDINGS: AP and lateral chest radiographs are obtained. No prior studies are available for compariso n at the time of dictation. The cardiomediastinal silhouette is unremarkable. There is left basilar consolidation, best seen on the lateral projection. The lungs and pleural spaces are otherwise clear. No large pleural effusion or pneumothorax is seen. The bony thorax appears intact. Trace intraperito bhanu free air suggestive of the diaphragm on the lateral projection. IMPRESSION: 1. There is airspace consolidation at the posterior left lung base, best seen on the lateral view. Co rrelate clinically for evidence of pneumonia/aspiration pneumonitis. Radiographic follow-up to resolu tion is recommended. Follow-up should include both PA and lateral projections patchy 2. The right lung appears clear. 3. Trace intraperitoneal free air is nonspecific and likely related to recent surgery. Clinical corre lation will be required. ACT 112: Negative or not required by law. Electronically signed by: Chris Snell M.D. 06/19/2021 7:09 PM
[2021-06-19 19:38] LABS: Appearance Urine Clear (Clear); Bilirubin Urine Negative (Negative); Blood Urine 2+ (Negative); Color Urine Yellow; Glucose Urine UA Negative (Negative); Ketones Urine Negative (Negative); Leukocyte Esterase Urine Trace (Negative); Nitrite Urine Negative (Negative); Protein Urine Negative (Negative); Specific Gravity Urine 1.015 (1.000-1.030); Urobilinogen Urine Negative (Negative)
[2021-06-19] MEDS: AMPICILLIN 2,000 MG in SODIUM CHLOR 0.9% AD-VAN 100 ML IV SCH (19:44)
[2021-06-19] MEDS: traMADol HCL 50 MG TABLET PO PRN (19:53)
[2021-06-19] MEDS ORDERED: bisacodyL 5 MG TABEC PO SCH (20:00)
[2021-06-19 20:12] LABS: Bacteria Urine Negative (Negative); RBC Urine 0-4 /hpf (0-4); Uric Acid Crystals Urine Present (None Prsent); WBC Urine 0-5 /hpf (0-5)
[2021-06-19] MEDS: GENTAMICIN SULFATE IV SCH (20:42)
[2021-06-19] MEDS: DEXTROSE 5% IV SCH (20:42)
[2021-06-19] MEDS ORDERED: Nursing to Pharmacy Communication SCH (21:00)
[2021-06-20] MEDS: AMPICILLIN 2,000 MG in SODIUM CHLOR 0.9% AD-VAN 100 ML IV SCH ×5 (01:35→20:29)
[2021-06-20] MEDS: traMADol HCL 50 MG TABLET PO PRN (01:39)
[2021-06-20 06:13] LABS: Hematocrit (blood only) 28.4 % (37-47); Hemoglobin 9.7 g/dL (12.0-16.0)
[2021-06-20 06:27] LABS: Creatinine Clr Calc Pharmacy 149.2 ml/min; Est GFR (African American) 137.3 ml/min; Est GFR (Non-African American) 118.5 ml/min
[2021-06-20] MEDS: LEVOTHYROXINE SODIUM 25 MCG TABLET PO SCH (06:31)
[2021-06-20] MEDS: FERROUS SULFATE 325 MG TAB PO SCH (07:40)
[2021-06-20] MEDS: IBUPROFEN 600 MG TAB PO PRN ×2 (07:40→18:14)
[2021-06-20] MEDS: PRENATAL VITAMIN 1 TAB PO SCH (07:40)
[2021-06-20] MEDS: DOCUSATE SODIUM 100 MG CAP PO SCH ×2 (07:40→20:29)
[2021-06-20] MEDS: SIMETHICONE 80 MG CHEW PO SCH ×4 (07:40→20:29)
--- NOTE | 2021-06-20 08:02 | Obstetrical Progress Note ---
Date of Service June 20, 2021 Assessment & Plan Admission and Anticipated Discharge Date Admission Date: June 18, 2021 Subjective Patient is seen and examined. She feels well, no complaints. Pain is under control with oral meds. Ambulating without dizzinesss Voiding without difficulty Tolerating regular diet with out N&V Flatus BM neg Bleeding is minimal No fever/ chills/ CP/ SOB/ N&V/ Leg pain Breast feeding without problems Lab Results 06/18/21 06/18/21 06/18/21 Range/Units 03:03 03:03 10:55 WBC 9.08 (4.8-10.8) K/uL RBC 4.22 (4.2-5.4) M/uL Hgb 12.6 (12.0-16.0) g/dL Hct 36.5 L (37-47) % MCV 86.5 (80-100) fL MCH 29.9 (25-34) pg MCHC 34.5 (32-36) g/dL RDW Std Deviation 42.0 (36.4-46.3) fL RDW Coeff of Milad 13.4 (11.5-14.5) % Plt Count 187 (130-400) K/uL MPV 9.8 (7.4-10.4) fL Immature Gran % (Auto) 0.2 % Neut % (Auto) 69.6 % Lymph % (Auto) 23.5 % Evans % (Auto) 5.9 % Eos % (Auto) 0.6 % Baso % (Auto) 0.2 % Neut # (Auto) 6.32 (1.4-6.5) K/uL Lymph # (Auto) 2.13 (1.2-3.4) K/uL Evans # (Auto) 0.54 (0.11-0.59) K/uL Eos # (Auto) 0.05 (0-0.5) K/uL Baso # (Auto) 0.02 (0-0.2) K/uL Immature Gran # (Auto) 0.02 (0.00-0.02) K/uL Cord ABG pH (7.1-7.38) Cord ABG pCO2 (39.1-73.5) mmHg Cord ABG pO2 (4.1-31.7) mmHg Cord ABG HCO3 (19.7-28.5) mmol/L Cord ABG Base Excess (-9-1.8) mEq/L Cord ABG O2 Sat (<60) % Barometric Pressure mm/Hg Blood Gas Comments Sodium 135 L (136-145) mmol/L Potassium 3.7 (3.5-5.1) mmol/L Chloride 105 (98-107) mmol/L Carbon Dioxide 21 (21-32) mmol/L Anion Gap 9 (3-11) BUN 10 (6-23) mg/dl Creatinine 0.60 (0.6-1.2) mg/dl Est Cr Clr Drug Dosing 154.2 ml/min Est GFR ( Amer) 138.8 ml/min Est GFR (Non-Af Amer) 119.8 ml/min BUN/Creatinine Ratio (10-20) Glucose (70-99(Fasting)) mg/dl Fasting Glucose 104 H (70-99) mg/dl Calcium 8.6 (8.5-10.1) mg/dl Total Bilirubin 0.3 (0.2-1.0) mg/dl AST 16 (13-39) U/L ALT 12 (7-52) U/L Alkaline Phosphatase 190 H (34-104) U/L Total Protein 6.2 (6.0-8.3) gm/dl Albumin 3.3 L (3.4-5.0) gm/dl Globulin 2.9 (2.5-4.0) gm/dl Albumin/Globulin Ratio 1.1 (0.9-2) Urine Color Urine Appearance (Clear) Urine pH (4.5-7.5) Ur Specific Igo (1.000-1.030) Urine Protein (Negative) Urine Glucose (UA) (Negative) Urine Ketones (Negative) Urine Blood (Negative) Urine Nitrite (Negative) Urine Bilirubin (Negative) Urine Urobilinogen (Negative) Ur Leukocyte Esterase (Negative) Urine RBC (0-4) /hpf Urine WBC (0-5) /hpf Ur Epithelial Cells (0-5) /lpf Uric Acid Crystals (None Prsent) Urine Bacteria (Negative) SARS-CoV-2, RNA, NAAT NEGATIVE (NEGATIVE) 06/18/21 06/19/21 06/19/21 Range/Units 21:46 06:07 17:14 WBC 15.56 H 12.87 H (4.8-10.8) K/uL RBC 3.64 L 3.56 L (4.2-5.4) M/uL Hgb 10.8 L 10.7 L (12.0-16.0) g/dL Hct 31.6 L 30.9 L (37-47) % MCV 86.8 86.8 (80-100) fL MCH 29.7 30.1 (25-34) pg MCHC 34.2 34.6 (32-36) g/dL RDW Std Deviation 43.1 43.8 (36.4-46.3) fL RDW Coeff of Milad 13.7 13.8 (11.5-14.5) % Plt Count 185 176 (130-400) K/uL MPV 9.8 9.1 (7.4-10.4) fL Immature Gran % (Auto) 0.2 0.2 % Neut % (Auto) 81.6 85.8 % Lymph % (Auto) 13.4 8.6 % Evans % (Auto) 4.5 4.8 % Eos % (Auto) 0.2 0.4 % Baso % (Auto) 0.1 0.2 % Neut # (Auto) 12.70 H 11.05 H (1.4-6.5) K/uL Lymph # (Auto) 2.09 1.11 L (1.2-3.4) K/uL Evans # (Auto) 0.70 H 0.62 H (0.11-0.59) K/uL Eos # (Auto) 0.03 0.05 (0-0.5) K/uL Baso # (Auto) 0.01 0.02 (0-0.2) K/uL Immature Gran # (Auto) 0.03 H 0.02 (0.00-0.02) K/uL Cord ABG pH 7.29 (7.1-7.38) Cord ABG pCO2 45 (39.1-73.5) mmHg Cord ABG pO2 26 (4.1-31.7) mmHg Cord ABG HCO3 21 (19.7-28.5) mmol/L Cord ABG Base Excess -5.3 (-9-1.8) mEq/L Cord ABG O2 Sat < 60.0 (<60) % Barometric Pressure 726.3 mm/Hg Blood Gas Comments DUQUE Sodium (136-145) mmol/L Potassium (3.5-5.1) mmol/L Chloride (98-107) mmol/L Carbon Dioxide (21-32) mmol/L Anion Gap (3-11) BUN (6-23) mg/dl Creatinine (0.6-1.2) mg/dl Est Cr Clr Drug Dosing ml/min Est GFR ( Amer) ml/min Est GFR (Non-Af Amer) ml/min BUN/Creatinine Ratio (10-20) Glucose (70-99(Fasting)) mg/dl Fasting Glucose (70-99) mg/dl Calcium (8.5-10.1) mg/dl Total Bilirubin (0.2-1.0) mg/dl AST (13-39) U/L ALT (7-52) U/L Alkaline Phosphatase (34-104) U/L Total Protein (6.0-8.3) gm/dl Albumin (3.4-5.0) gm/dl Globulin (2.5-4.0) gm/dl Albumin/Globulin Ratio (0.9-2) Urine Color Urine Appearance (Clear) Urine pH (4.5-7.5) Ur Specific Igo (1.000-1.030) Urine Protein (Negative) Urine Glucose (UA) (Negative) Urine Ketones (Negative) Urine Blood (Negative) Urine Nitrite (Negative) Urine Bilirubin (Negative) Urine Urobilinogen (Negative) Ur Leukocyte Esterase (Negative) Urine RBC (0-4) /hpf Urine WBC (0-5) /hpf Ur Epithelial Cells (0-5) /lpf Uric Acid Crystals (None Prsent) Urine Bacteria (Negative) SARS-CoV-2, RNA, NAAT (NEGATIVE) 06/19/21 06/19/21 06/20/21 Range/Units 17:14 18:45 05:40 WBC (4.8-10.8) K/uL RBC (4.2-5.4) M/uL Hgb (12.0-16.0) g/dL Hct (37-47) % MCV (80-100) fL MCH (25-34) pg MCHC (32-36) g/dL RDW Std Deviation (36.4-46.3) fL RDW Coeff of Milad (11.5-14.5) % Plt Count (130-400) K/uL MPV (7.4-10.4) fL Immature Gran % (Auto) % Neut % (Auto) % Lymph % (Auto) % Evans % (Auto) % Eos % (Auto) % Baso % (Auto) % Neut # (Auto) (1.4-6.5) K/uL Lymph # (Auto) (1.2-3.4) K/uL Evans # (Auto) (0.11-0.59) K/uL Eos # (Auto) (0-0.5) K/uL Baso # (Auto) (0-0.2) K/uL Immature Gran # (Auto) (0.00-0.02) K/uL Cord ABG pH (7.1-7.38) Cord ABG pCO2 (39.1-73.5) mmHg Cord ABG pO2 (4.1-31.7) mmHg Cord ABG HCO3 (19.7-28.5) mmol/L Cord ABG Base Excess (-9-1.8) mEq/L Cord ABG O2 Sat (<60) % Barometric Pressure mm/Hg Blood Gas Comments Sodium 134 L (136-145) mmol/L Potassium 3.6 (3.5-5.1) mmol/L Chloride 102 (98-107) mmol/L Carbon Dioxide 27 (21-32) mmol/L Anion Gap 5 (3-11) BUN 8 (6-23) mg/dl Creatinine 0.70 0.62 (0.6-1.2) mg/dl Est Cr Clr Drug Dosing 132.2 149.2 ml/min Est GFR ( Amer) 131.9 137.3 ml/min Est GFR (Non-Af Amer) 113.8 118.5 ml/min BUN/Creatinine Ratio 11.4 (10-20) Glucose 77 (70-99(Fasting)) mg/dl Fasting Glucose (70-99) mg/dl Calcium 8.0 L (8.5-10.1) mg/dl Total Bilirubin 0.4 (0.2-1.0) mg/dl AST 68 H (13-39) U/L ALT 23 (7-52) U/L Alkaline Phosphatase 143 H (34-104) U/L Total Protein 5.4 L (6.0-8.3) gm/dl Albumin 2.8 L (3.4-5.0) gm/dl Globulin 2.6 (2.5-4.0) gm/dl Albumin/Globulin Ratio 1.1 (0.9-2) Urine Color Yellow Urine Appearance Clear (Clear) Urine pH 7.0 (4.5-7.5) Ur Specific Igo 1.015 (1.000-1.030) Urine Protein Negative (Negative) Urine Glucose (UA) Negative (Negative) Urine Ketones Negative (Negative) Urine Blood 2+ H (Negative) Urine Nitrite Negative (Negative) Urine Bilirubin Negative (Negative) Urine Urobilinogen Negative (Negative) Ur Leukocyte Esterase Trace H (Negative) Urine RBC 0-4 (0-4) /hpf Urine WBC 0-5 (0-5) /hpf Ur Epithelial Cells 10-20 H (0-5) /lpf Uric Acid Crystals Present A (None Prsent) Urine Bacteria Negative (Negative) SARS-CoV-2, RNA, NAAT (NEGATIVE) 06/20/21 Range/Units 05:40 WBC (4.8-10.8) K/uL RBC (4.2-5.4) M/uL Hgb 9.7 L (12.0-16.0) g/dL Hct 28.4 L (37-47) % MCV (80-100) fL MCH (25-34) pg MCHC (32-36) g/dL RDW Std Deviation (36.4-46.3) fL RDW Coeff of Milad (11.5-14.5) % Plt Count (130-400) K/uL MPV (7.4-10.4) fL Immature Gran % (Auto) % Neut % (Auto) % Lymph % (Auto) % Evans % (Auto) % Eos % (Auto) % Baso % (Auto) % Neut # (Auto) (1.4-6.5) K/uL Lymph # (Auto) (1.2-3.4) K/uL Evans # (Auto) (0.11-0.59) K/uL Eos # (Auto) (0-0.5) K/uL Baso # (Auto) (0-0.2) K/uL Immature Gran # (Auto) (0.00-0.02) K/uL Cord ABG pH (7.1-7.38) Cord ABG pCO2 (39.1-73.5) mmHg Cord ABG pO2 (4.1-31.7) mmHg Cord ABG HCO3 (19.7-28.5) mmol/L Cord ABG Base Excess (-9-1.8) mEq/L Cord ABG O2 Sat (<60) % Barometric Pressure mm/Hg Blood Gas Comments Sodium (136-145) mmol/L Potassium (3.5-5.1) mmol/L Chloride (98-107) mmol/L Carbon Dioxide (21-32) mmol/L Anion Gap (3-11) BUN (6-23) mg/dl Creatinine (0.6-1.2) mg/dl Est Cr Clr Drug Dosing ml/min Est GFR ( Amer) ml/min Est GFR (Non-Af Amer) ml/min BUN/Creatinine Ratio (10-20) Glucose (70-99(Fasting)) mg/dl Fasting Glucose (70-99) mg/dl Calcium (8.5-10.1) mg/dl Total Bilirubin (0.2-1.0) mg/dl AST (13-39) U/L ALT (7-52) U/L Alkaline Phosphatase (34-104) U/L Total Protein (6.0-8.3) gm/dl Albumin (3.4-5.0) gm/dl Globulin (2.5-4.0) gm/dl Albumin/Globulin Ratio (0.9-2) Urine Color Urine Appearance (Clear) Urine pH (4.5-7.5) Ur Specific Igo (1.000-1.030) Urine Protein (Negative) Urine Glucose (UA) (Negative) Urine Ketones (Negative) Urine Blood (Negative) Urine Nitrite (Negative) Urine Bilirubin (Negative) Urine Urobilinogen (Negative) Ur Leukocyte Esterase (Negative) Urine RBC (0-4) /hpf Urine WBC (0-5) /hpf Ur Epithelial Cells (0-5) /lpf Uric Acid Crystals (None Prsent) Urine Bacteria (Negative) SARS-CoV-2, RNA, NAAT (NEGATIVE) Vital Signs Temp Pulse Resp BP Pulse Ox 06/20/21 07:23 36.4 C L 75 16 133/81 99 06/20/21 02:15 37.1 C 06/20/21 00:00 37.1 C 93 H 20 120/76 96 06/19/21 19:50 36.5 C 94 H 20 116/77 96 06/19/21 18:56 37.1 C 06/19/21 16:51 38.3 C H 06/19/21 16:40 37.6 C H 06/19/21 15:39 37 C 88 20 120/75 06/19/21 12:54 36.5 C 06/19/21 11:50 36.8 C 74 18 113/71 97 06/19/21 08:02 36.7 C 76 19 116/74 95 Intake and Output 06/19/21 06/20/21 06/20/21 22:59 06:59 14:59 Intake Total 100 / 200 100 / 200 Output Total 13990 Balance -1300 / -1450 100 / -1450 Intake: IV 100 / 200 100 / 200 Ampicillin 2,000 mg In Sodium 100 / 200 100 / 200 Chlor 0.9% Ad-Van 100 ml @ 200 mls/hr IV Q6H [facility] Rx#:[id number] Output: Urine Amount (Catheter) 1399 Duran/Indwelling 1399 PE: General: Alert, orientedx3, NAD CVS: S1S2 RRR Lungs; CTAB Abd: soft, NT, ND, BS+, fundus firm, below Umbilicus Incision: Clean, dry, intact Perineum intact, Lochia rubra minimal Ext; NT, no edema AP: 35 yo s/p C Section, pod# 2 VSS Afebrile doing well Had 1 time fever, on Amp and gent Repeat labs this afternoon Continue routine postop care Encourage ambulation, PO intake All questions were answered D/C home tomorrow Results & Data ([facility]) Vital Signs (Past 12 Hours) Vital Signs Temp Pulse Resp BP Pulse Ox 06/20/21 07:23 36.4 C L 75 16 133/81 99 06/20/21 02:15 37.1 C 06/20/21 00:00 37.1 C 93 H 20 120/76 96
[2021-06-20 17:15] LABS: Basophils # (auto) 0.01 K/uL (0-0.2); Basophils % (auto) 0.1 %; Eosinophils # (auto) 0.11 K/uL (0-0.5); Eosinophils % (auto) 0.9 %; Hematocrit (blood only) 29.3 % (37-47); Hemoglobin 9.8 g/dL (12.0-16.0); Immature Granulocytes # (auto) 0.02 K/uL (0.00-0.02); Immature Granulocytes % (auto) 0.2 %; Lymphocytes # (auto) 1.54 K/uL (1.2-3.4); Lymphocytes % (auto) 12.5 %; Mean Corpuscular Hemoglobin 29.4 pg (25-34); Mean Corpuscular Hgb Conc 33.4 g/dL (32-36); Mean Platelet Volume 9.3 fL (7.4-10.4); Monocytes # (auto) 0.53 K/uL (0.11-0.59); Monocytes % (auto) 4.3 %; Neutrophils # (auto) 10.09 K/uL (1.4-6.5); Platelet Count 177 K/uL (130-400); RDW Coefficient of Variation 13.9 % (11.5-14.5); RDW Standard Deviation 44.1 fL (36.4-46.3); Red Blood Count 3.33 M/uL (4.2-5.4)
[2021-06-20 17:40] LABS: Albumin Level 2.7 gm/dl (3.4-5.0); BUN Creatinine Ratio 14.3 (10-20); Bilirubin,Total 0.3 mg/dl (0.2-1.0); Calcium 8.3 mg/dl (8.5-10.1); Creatinine Clr Calc Pharmacy 165.2 ml/min; Est GFR (Non-African American) 122.5 ml/min; Globulin 2.7 gm/dl (2.5-4.0); Potassium 3.3 mmol/L (3.5-5.1); Total Protein 5.4 gm/dl (6.0-8.3)
[2021-06-20] MEDS: DEXTROSE 5% IV SCH (18:45)
[2021-06-20] MEDS: GENTAMICIN SULFATE IV SCH (18:45)
[2021-06-20] MEDS ORDERED: bisacodyL 10 MG SUPP PR PRN (22:58)
[2021-06-21] MEDS: IBUPROFEN 600 MG TAB PO PRN ×3 (01:12→12:41)
[2021-06-21] MEDS: AMPICILLIN 2,000 MG in SODIUM CHLOR 0.9% AD-VAN 100 ML IV SCH (01:16)
[2021-06-21] MEDS: LEVOTHYROXINE SODIUM 25 MCG TABLET PO SCH (06:34)
--- NOTE | 2021-06-21 07:40 | Obstetrical Progress Note ---
Date of Service June 21, 2021 Assessment & Plan (1) Normal course: Continue routine care, anticipate discharge home later today (2) fever, current hospitalization: Patient was started on ampicillin and gentamicin on June 19, received her last 2 doses last night. Doing well with no fevers for over 24 hours. Will DC antibiotics at this time and continue to observe. Subjective Ambulation: ambulating normally Voiding: no voiding problems Passing Gas:: Yes Diet Tolerance:: regular diet Lochia:: Small Feeding Type:: breast feeding Current Pain Level(1-10): 2 Doing well, no complaints this AM Physical Exam Constitutional WD/WN, vitals as above Cardiovascular RRR, no murmur, no edema Gastrointestinal (Abdomen) normal bowel sounds, soft, nontender, no hepatosplenomegaly mild fundal tenderness Incision clean and dry Results & Data ([facility]) Vital Signs (Past 12 Hours) Vital Signs Temp Pulse Resp BP Pulse Ox 06/21/21 00:25 36.9 C 60 18 119/78 97 06/20/21 20:30 37.0 C 85 18 124/77 97 Laboratory Results H/H: 9.8/29.3 WBC 12.3 (tending down)
[2021-06-21] MEDS: PRENATAL VITAMIN 1 TAB PO SCH (09:07)
[2021-06-21] MEDS: DOCUSATE SODIUM 100 MG CAP PO SCH (09:07)
[2021-06-21] MEDS: SIMETHICONE 80 MG CHEW PO SCH ×2 (09:07→12:41)
[2021-06-21] MEDS: FERROUS SULFATE 325 MG TAB PO SCH (09:08)
[2021-06-21] MEDS: traMADol HCL 50 MG TABLET PO PRN ×2 (09:08→12:41)
== END 2021-06-21 14:50 | disposition home or self-care (01) | DRG 788 ==
LOC: OPB 00:45 → 4S1 00:50 → 4E2 06-19 06:30